=== PATIENT | female | born 1985 | race Caucasian/White ===

== ENCOUNTER 2016-12-13 15:36 | Emergency (ER) | payer SELFPAY ==
[~2016-12-13 15:36] MED LIST: NO HOME MEDICATION XX; NO HOME MEDS; PRENATAL PO; TRAMADOL HCL50 M2 PO
[2016-12-13 16:04] LABS: URINE BILIRUBIN NEGATIVE (NEG); URINE BLOOD NEGATIVE (NEG); URINE GLUCOSE (UA) NEGATIVE (NEG); URINE KETONE NEGATIVE (NEG); URINE LEUKOCYTE ESTERASE POSITIVE (NEG); URINE NITRITE NEGATIVE (NEG); URINE PROTEIN NEGATIVE (NEG)
[2016-12-13 16:08] LABS: URINE APPEARANCE CLOUDY; URINE COLOR YELLOW
[2016-12-13 16:15] LABS: URINE BACTERIA 1+; URINE RBC 0 /[HPF] (0-5)
[2016-12-13 16:21] LABS: BASO % 0.7 % (0-2); BASO ABSOLUTE COUNT 0.1 tho/cmm (0.0-0.2); EOS % 0.5 % (0-7); HCT-HEMATOCRIT 37.7 % (34.0-49.0); HGB-HEMOGLOBIN 12.8 gm/dl (12.0-15.5); IMMATURE GRANULOCYTES ABSOLUTE 0.03 tho/cmm (0-0.03); IMMATURE GRANULOCYTES PERCENT 0.4 % (0-0.3); LYMPH % 27.1 % (20-45); MCH (MEAN CORPUSCULAR HGB) 31.6 pg (28.0-32.0); MCV (MEAN CELL VOLUME) 93.1 fl (82.0-96.0); MONO % 8.4 % (0-12); MONOCYTE ABSOLUTE COUNT 0.6 tho/cmm (0.0-1.2); NEUTROPHIL ABSOLUTE COUNT 4.7 tho/cmm (1.6-8.0); NEUTROPHIL-AUTOMATED 4.7 tho/cmm (1.6-8.0); NEUTROPHILS % 62.9 % (40-80); PLATELET COUNT 299 tho/cmm (150-450); RED BLOOD COUNT 4.05 mil/cmm (4.00-5.20); WHITE BLOOD COUNT 7.5 tho/cmm (4.0-10.0)
[2016-12-13 16:33] LABS: ANION GAP 15 mmol/L (0-20); BLOOD UREA NITROGEN 8 mg/dl (6-24); CALCIUM 8.3 mg/dl (8.5-10.5); CARBON DIOXIDE-VENOUS 25 mmol/L (22-32); CHLORIDE 108 mmol/l (96-110); GLUCOSE 117 mg/dL (70-110); POTASSIUM 3.6 mmol/L (3.7-5.1); SODIUM 144 mmol/L (135-145); eGFR VALUE FOR BLACK >90 mL/Min
[2016-12-13] MEDS ORDERED: NORCO 5-325 TA1 EACH PO (17:41)
[2016-12-13] MEDS ORDERED: CIPRO500 M2 PO (17:41)
== END 2016-12-13 17:51 ==
LOC: EDMED 15:36
PROVIDERS: Emergency Medicine
DX: N10 Acute pyelonephritis (principal); F17.200 Nicotine dependence, unspecified, uncomplicated
CPT/HCPCS: J0696; J1885; J7030

== ENCOUNTER 2016-12-17 18:58 | Emergency (ER) | payer SELFPAY ==
[~2016-12-17 18:58] MED LIST changes: +CIPRO500 M2 PO; +NORCO 5-325 TA1 EACH PO
[2016-12-17] MEDS ORDERED: HYDROCODON-ACE1 EA16 PO (22:03)
[2016-12-17] MEDS ORDERED: IBUPROFEN600 M1 PO (22:04)
[2016-12-17] MEDS ORDERED: PERCOCET 5-3251 EACH PO (22:38)
== END 2016-12-17 22:47 ==
LOC: EDMED 18:58
DX: S92.002G Unspecified fracture of left calcaneus, subsequent encounter for fracture with delayed healing (principal); X58.XXXD Exposure to other specified factors, subsequent encounter

== ENCOUNTER 2016-12-25 14:10 | Emergency (ER) | payer SELFPAY ==
[~2016-12-25 14:10] MED LIST changes: +HYDROCODON-ACE1 EA16 PO; +IBUPROFEN600 M1 PO; +PERCOCET 5-3251 EACH PO
[2016-12-25] MEDS ORDERED: PERCOCET 5-3251 EACH PO (16:50)
== END 2016-12-25 16:50 ==
LOC: EDMED 14:10
PROC: 2W3RX1Z Immobilization of Left Lower Leg using Splint (ICD-10-PCS; principal; 2016-12-25)
DX: S92.002A Unspecified fracture of left calcaneus, initial encounter for closed fracture (principal); F17.210 Nicotine dependence, cigarettes, uncomplicated; W19.XXXA Unspecified fall, initial encounter